=== PATIENT | male | born 1990 | race Caucasian/White ===

== ENCOUNTER 2022-06-18 07:49 | Emergency (ER) | payer OTHER ==
[~2022-06-18] VITALS: Ht 182.9 cm; Wt 99.0 kg
[2022-06-18 08:52] VITALS: BP 139/92
[2022-06-18] MEDS ORDERED: METH750T22 PO (09:36)
[2022-06-18] MEDS ORDERED: IBUP800T27 PO (09:36)
== END 2022-06-18 09:43 | disposition home or self-care (01) ==
LOC: ER 07:49 → EDBD 07:49 → ER 09:43
DX: S13.4XXA Sprain of ligaments of cervical spine, initial encounter (principal); S20.211A Contusion of right front wall of thorax, initial encounter; V49.49XA Driver injured in collision with other motor vehicles in traffic accident, initial encounter; Y93.89 Activity, other specified; Y92.410 Unspecified street and highway as the place of occurrence of the external cause; Y99.8 Other external cause status
CPT/HCPCS: 71046; 72040